=== PATIENT | male | born 1990 | race Caucasian/White ===

== ENCOUNTER 2018-03-25 17:54 | Emergency (ER) | payer MEDICAID ==
[~2018-03-25] VITALS: Ht 175.3 cm; Wt 111.1 kg
[~2018-03-25 17:54] MED LIST: ACETAMINOP-CODEI5 ML PO; AMITRIPTYLINE H10 M3; AMOXICILLIN 50500 M1 PO; ANTIVERT25 MG PO; APAP650 PO; BACLOFEN20 MG PO; BACTRIM DS TAB1 EACH PO; CRUTCH1 EACH MC; CYMBALTA30 MG PO; FLEXERIL; HYDROCODONE-AP1 EAC6 PO; IBUPROFEN 800800 M1 PO; KEFLEX500 MG PO; LIORESAL 10 MG10 MG PO; MEDROLDOSEPACK PO; MORPHINE SULFAT10 MG PO; MUSCLE RELAXER; NAPROSYN500 MG PO; NEURONTIN 400M400 M2; NORCO 5-325 TA1 EAC1 PO; NORCO 5-325 TA1 EACH PO; ONDANSETRON HCL4 M2 PO; PERCOCET 5-3251 EACH PO; PROTONIX 20 MG20 M1 PO; PROTONIX40 M1; PROZAC40 MG; TRAZODONE 150150 M1 PO; TRAZODONE HCL100 MG PO; UNKNOWN ANTIBIOTIC PO; VALIUM5 MG PO; VENTOLIN HFA 1818 GM INH; VICOPROFEN 2001 EACH; VISTARIL 25 MG25 M1 PO; ZOFRAN ODT4 MG PO
[2018-03-25 18:23] LABS: ABSOLUTE LYMPHOCYTES 1.1 thou/uL (0.8-5.3); ABSOLUTE MONOCYTES 0.5 thou/uL (0.0-1.2); ABSOLUTE NEUTROPHILS 6.4 thou/uL (1.6-8.1); BASOPHILS 0.5 %; EOSINOPHILS 0.3 %; HEMATOCRIT 43.9 % (42.0-52.0); HEMOGLOBIN 15.1 gm/dL (14.0-18.0); MCH 27.8 pg (26.0-34.0); MCHC 34.3 g/dL (28.0-37.0); MCV 81.1 fL (80.0-100.0); MONOCYTES 6.6 %; MPV 7.4 fl. (7.2-11.1); NUCLEATED RBCS 0 /100WBC; PLATELET COUNT* 292 thou/uL (150-400); POLYS 78.6 %; RBC 5.41 mil/uL (4.50-6.00); RDW-CV 12.9 % (10.5-14.5); WBC 8.1 thou/uL (4.0-11.0)
[2018-03-25 18:33] LABS: CALCIUM 9.3 mg/dL (8.5-10.1); POTASSIUM 3.4 mmol/L (3.5-5.1)
[2018-03-25 18:37] LABS: ALBUMIN 4.3 g/dL (3.4-5.0); TOTAL BILIRUBIN 0.5 mg/dL (<0.1-1.0); TOTAL PROTEIN 8.1 g/dL (6.4-8.2)
[2018-03-25] MEDS ORDERED: ZOFRAN ODT4 MG PO (20:14)
[2018-03-25 20:29] VITALS: BP 137/77
== END 2018-03-25 20:31 | disposition home or self-care (01) ==
LOC: M.ERS 17:54
PROVIDERS: Nurse Practitioner Family
DX: A08.39 Other viral enteritis (principal); R11.2 Nausea with vomiting, unspecified; M41.9 Scoliosis, unspecified; M79.7 Fibromyalgia; Z88.1 Allergy status to other antibiotic agents; Z88.6 Allergy status to analgesic agent

== ENCOUNTER 2018-04-29 17:53 | Inpatient (IN) | payer MEDICAID ==
[~2018-04-29] VITALS: Ht 175.3 cm; Wt 110.7 kg
[~2018-04-29 17:53] MED LIST changes: -AMITRIPTYLINE H10 M3; +AMITRIPTYLINE H10 M3 PO; -NEURONTIN 400M400 M2; +NEURONTIN 400M400 M2 PO; -PROZAC40 MG; +PROZAC40 MG PO
[2018-04-29 18:07] VITALS: BP 101/80
[2018-04-29 18:35] LABS: HEMATOCRIT 42.4 % (42.0-52.0); HEMOGLOBIN 14.4 gm/dL (14.0-18.0); MCH 27.9 pg (26.0-34.0); MCHC 34.1 g/dL (28.0-37.0); MCV 81.9 fL (80.0-100.0); MPV 8.7 fl. (7.2-11.1); NUCLEATED RBCS 0 /100WBC; PLATELET COUNT* 208 thou/uL (150-400); RBC 5.17 mil/uL (4.50-6.00); RDW-CV 13.5 % (10.5-14.5); WBC 7.7 thou/uL (4.0-11.0)
[2018-04-29 18:43] LABS: CALCIUM 8.5 mg/dL (8.5-10.1); CREATININE 1.1 mg/dL (0.6-1.3); POTASSIUM 3.7 mmol/L (3.5-5.1)
[2018-04-29 18:48] LABS: ALBUMIN 3.2 g/dL (3.4-5.0); TOTAL BILIRUBIN 0.6 mg/dL (<0.1-1.0); TOTAL PROTEIN 7.7 g/dL (6.4-8.2)
[2018-04-29 19:06] LABS: INFLUENZA B ANTIGEN None Detected (None Detect)
[2018-04-29 19:14] LABS: ABSOLUTE LYMPHOCYTES 0.5 thou/uL (0.8-5.3); ABSOLUTE MONOCYTES 0.3 thou/uL (0.0-1.2); ABSOLUTE NEUTROPHILS 6.9 thou/uL (1.6-8.1); ATYPICAL LYMPHS 2 %; PLATELET ESTIMATE ADEQUATE
[2018-04-29 20:04] VITALS: BP 124/67
[2018-04-29 20:44] VITALS: BP 134/76
[2018-04-29 22:14] LABS: URINE BILIRUBIN NEGATIVE (Negative); URINE BLOOD 3+ (Negative); URINE CLARITY CLEAR; URINE COLOR YELLOW; URINE GLUCOSE-RANDOM NEGATIVE (Negative); URINE KETONES 2+ (Negative); URINE LEUKOCYTES-REFLEX NEGATIVE (Negative); URINE NITRITE-REFLEX NEGATIVE (Negative); URINE PROTEIN 3+ (Negative)
[2018-04-29 22:22] LABS: BACTERIA-REFLEX None Seen /HPF (None Seen); CASTS None Seen /LPF (None Seen); CRYSTALS None Seen /LPF (None Seen); SQUAMOUS 4-10 Moderate /LPF (0-3); URINE RBC None Seen /HPF (0-2); URINE WBC-REFLEX None Seen /HPF (0-5)
[2018-04-30] VITALS: BP 119/67
[2018-04-30 00:23] LABS: BE -0.4 mmol/L (-2 to +3); HCO3 22.2 mmol/L (22.0-26.0); pH 7.473 (7.340-7.450)
[2018-04-30 04:00] VITALS: BP 113/55
--- NOTE | 2018-04-30 04:24 | NUR ---
ASSUMED CARE OF PT AT 2010 FROM THE ER. PT IS ALERT AND ORIENTED. NO COMPLAINTS OF PAIN. BEDREST. PT SCORED POSITIVE ON SEPSIS. PT RECIEVED FLUID BOLUS AND ANTIBIOTICS. PT IS ALSO REQUIRING BIPAP TO KEEP SPO2 ABOVE 90%. PT IS SLEEPING COMFORTABLY IN BED. RESPIRATIONS ARE EVEN AND NONLABORED. WILL CONTINUE TO MONITOR PT.
[2018-04-30 05:14] LABS: HEMATOCRIT 37.9 % (42.0-52.0); HEMOGLOBIN 12.6 gm/dL (14.0-18.0); MCH 27.7 pg (26.0-34.0); MCHC 33.2 g/dL (28.0-37.0); MCV 83.2 fL (80.0-100.0); MPV 8.6 fl. (7.2-11.1); RBC 4.55 mil/uL (4.50-6.00); RDW-CV 13.7 % (10.5-14.5); WBC 10.9 thou/uL (4.0-11.0)
[2018-04-30 05:28] LABS: CALCIUM 7.5 mg/dL (8.5-10.1); CREATININE 0.9 mg/dL (0.6-1.3); MAGNESIUM 2.2 mg/dL (1.8-2.4); POTASSIUM 3.8 mmol/L (3.5-5.1)
[2018-04-30 08:14] VITALS: BP 118/61
[2018-04-30 08:26] LABS: BE -1.1 mmol/L (-2 to +3); HCO3 22.4 mmol/L (22.0-26.0); PCO2 33.7 mmHg (35.0-45.0); PO2 73.9 mmHg (75.0-100.0)
[2018-04-30 08:34] LABS: PO2 51.7 mmHg (75.0-100.0)
--- NOTE | 2018-04-30 11:52 | EKG ---
[place] [address] ELECTROCARDIOGRAM REPORT Name: ALVARADOLIO Room: [address] ADM IN M.R.#: [id number] Admission: 04/29/18 Attend Phys: Sandra Sanders MD Discharge: Date of : 89 Report #: [id number] THIS REPORT FOR: //name// [facility] ED Test Date: 2018-04-29 Test Time: 18:27:09 Pat Name: LIO ALVARADO Department: Room: [address] Gender: M Data Analysis Intern: Lavelle IRVING : 1990 Requested By: Deena Barrientos Order Number: [id number] Lorraine MD: Gal Perez Measurements Intervals [place] Rate: 128 P: 36 MD: 139 QRS: 16 QRSD: 94 T: -6 QT: 330 QTc: 482 Interpretive Statements Sinus tachycardia artifact noted Borderline T abnormalities, diffuse leads Borderline prolonged QT interval Compared to ECG 12/04/2016 22:18:58 Sinus rhythm no longer present T-wave abnormality still present Electronically Signed On 04-30-2018 11:52:00 TICKET DISPENSER CHANGER by Gal Perez [email or web address] <ELECTRONICALLY SIGNED> By: Gal Perez MD, [facility] 04/30/18 1152 1827 1827 Gal Perez MD, [facility] /EPI
[2018-04-30 12:02] VITALS: BP 128/69
[2018-04-30 16:28] VITALS: BP 115/70
--- NOTE | 2018-04-30 18:00 | NUR ---
PT PROGRESSING TOWARDS GOALS THIS SHIFT. TOLERATING TIME OFF BIPAP AT 15 L/HF NC DURING MEALS AND WHILE AWAKE TODAY. BIPAP PLACED DURING TIMES OF SLEEP. PT MADE MED SURG STATUS THIS SHIFT. CONTINUE ON ISOLATION FOR FLU PRECAUTIONS. NO OTHER CONCERNS AT THIS TIME. CLWR. WCTM.
[2018-04-30 20:00] VITALS: BP 111/56
[2018-05-01] VITALS: BP 104/55
[2018-05-01 02:05] LABS: GLYCOHEMOGLOBIN (HGB A1C) 5.4 % (4.8-5.6)
--- NOTE | 2018-05-01 02:23 | NUR ---
ASSUMED PT CARE AT 1930. ASSESSMENT COMPLETED CHARTED. ABLE TO MAKE NEEDS KNOWN. MOTHER AT BEDSIDE. NO C/O PAIN, DISCOMFORT, OR SOA. UP WITH STANDBY. PT RESTING IN BED AT THIS TIME ON BIPAP. WILL CONTINUE TO MONITOR.
[2018-05-01 05:33] LABS: ABSOLUTE LYMPHOCYTES 0.7 thou/uL (0.8-5.3); ABSOLUTE MONOCYTES 0.2 thou/uL (0.0-1.2); ABSOLUTE NEUTROPHILS 7.9 thou/uL (1.6-8.1); BASOPHILS 0.1 %; HEMATOCRIT 34.9 % (42.0-52.0); HEMOGLOBIN 12.1 gm/dL (14.0-18.0); LYMPHOCYTES 8.3 %; MCH 28.8 pg (26.0-34.0); MCHC 34.7 g/dL (28.0-37.0); MCV 82.9 fL (80.0-100.0); MONOCYTES 2.6 %; MPV 8.8 fl. (7.2-11.1); NUCLEATED RBCS 0 /100WBC; PLATELET COUNT* 187 thou/uL (150-400); RBC 4.22 mil/uL (4.50-6.00); WBC 8.8 thou/uL (4.0-11.0)
[2018-05-01 06:33] LABS: ALBUMIN 2.1 g/dL (3.4-5.0); CALCIUM 7.3 mg/dL (8.5-10.1); CREATININE 0.5 mg/dL (0.6-1.3); MAGNESIUM 2.2 mg/dL (1.8-2.4); POTASSIUM 4.1 mmol/L (3.5-5.1); TOTAL BILIRUBIN 0.3 mg/dL (<0.1-1.0); TOTAL PROTEIN 5.2 g/dL (6.4-8.2)
[2018-05-01 08:45] VITALS: BP 104/55
--- NOTE | 2018-05-01 08:45 | NUR ---
ASSUMED PT. CARE AND RECEIVED REPORT AT 0730. PT A/OX4 WITH QUIET/FLAT AFFECT, VSS, PT. MED/SURG STATUS. UPON ENTERING ROOM PT HAD REMOVED HFNC STATING THAT THERE WAS WATER IN IT. RT NOTIFIED AND ASSESSED, OXYGEN REPLACED AT 15LHFNC. PT. WAS 87% ON RA. PT. C/O PAIN IN BACK (CHRONIC) 5/10, SORE THROAT, AND CLOGGED LEFT EAR. FULL ASSESSMENT COMPLETED, REFER TO CHARTING. PT. MOTHER AT BEDSIDE. STATES THAT PT. HOME MEDS ARE NOT REORDERED HE TAKES THEM, ALSO THAT HE TAKES 20MG OF METHADONE AND THAT HAS NOT BEEN GIVEN. METHADONE IS NOT ON HOME MED LIST, PT. MOTHER STATES SHE TOLD THE RN IN ER. HOME MED LIST UPDATED AND PT. REQUEST FOR THROAT SPRAY AND CHANGE IN HOME MEDS ORDERED SENT TO DR. ULRICH VIA [employer]. CALL LIGHT IN REACH, WILL CONTINUE WITH PLAN OF CARE.
[2018-05-01] MEDS ORDERED: METHADOSE10 MG PO (08:46)
--- NOTE | 2018-05-01 12:32 | NUR ---
PT. TITRATED O2 BY DR. ULRICH WHEN IN ROOM TO 8L HFNC. UPON RECHECK PT. OXYGEN SAT. 88%. OX INCREASE BACK UP TO 10L HFNC @ 92%.
[2018-05-01 12:47] VITALS: BP 114/58
--- NOTE | 2018-05-01 16:59 | NUR ---
PT. MOTHER IN ROOM MOST OF THE DAY. STATES SHE IS CURRENTLY NOT FEELING WELL NOW AND RUNNING TEMP, THINKS SHE MIGHT HAVE FLU NOW. SHE IS LEAVING TO RETURN HOME. PT. EDUCATED ON FALL PRECAUTIONS AND ENSURE BED ALARM IS SET.
--- NOTE | 2018-05-01 18:54 | NUR ---
NO CHANGE IN PT. STATUS REMAINDER OF SHIFT. PT. IS NOT STEADY ON FEET, AND HYPERVENTILATES WITH ANY MOVEMENT/ACTIVITY. PT. TAKEN TO SHOWER ROOM VIA WHEELCHAIR, ABLE TO CLEAN SELF AND BRUSH TEETH WITH SUPERVISION. REMAINS ON 10L HFNC. PT DID WEAR BIPAP ON/OFF WHILE NAPPING TODAY. INCONT. OF MINOR STOOL AND THEN HAD LARGE BM, BROWN/FORMED. PT. USING CALL LIGHT APPROPRIATELY AND ASKING FOR ASSISTANCE. HOURLY ROUNDING COMPLETED THROUGH OUT THE DAY FOR PT. SAFETY. FALL PRECAUTIONS REMAIN IN PLACE.
[2018-05-01 20:00] VITALS: BP 126/73
[2018-05-02 00:11] VITALS: BP 140/77
--- NOTE | 2018-05-02 04:13 | NUR ---
ASSUMED PT CARE AT 1930. ASSESSMENT COMPLETED CHARTED. ABLE TO MAKE NEEDS KNOWN. PT RESTING IN BED AT THIS TIME. NO C/O PAIN OR DISCOMFORT. PT STATES HE IS MISSING HIS MOTHER BEING THERE. ON 10L HFNC AND BIPAP AT NIGHT. WILL CONTINUE TO MONITOR.
[2018-05-02 05:26] LABS: HEMATOCRIT 36.1 % (42.0-52.0); HEMOGLOBIN 12.2 gm/dL (14.0-18.0); MCH 27.9 pg (26.0-34.0); MCHC 33.7 g/dL (28.0-37.0); MCV 82.8 fL (80.0-100.0); MPV 8.6 fl. (7.2-11.1); RBC 4.37 mil/uL (4.50-6.00); WBC 5.6 thou/uL (4.0-11.0)
[2018-05-02 05:37] LABS: CALCIUM 8.2 mg/dL (8.5-10.1); CREATININE 0.6 mg/dL (0.6-1.3); POTASSIUM 3.5 mmol/L (3.5-5.1)
--- NOTE | 2018-05-02 08:50 | NUR ---
ASSUMED PT. CARE AND RECEIVED REPORT AT 0730. PT A/OX4, VSS, PT. MED/SURG STATUS. PT. ON 10L HFNC. FULL ASSESSMENT COMPLETED, REFER TO CHARTING. PT ENCOURAGED TO INCREASE ACTIVITY TOLERATED TODAY, UP TO RECLINER FOR BREAKFAST. CONTINUES TO HYPERVENTILATE WITH ANY ACTIVITY. C/O LEFT EAR BEING CLOGGED AND SORE THROAT REMAINS. CALL LIGHT IN REACH, WILL CONTINUE WITH PLAN OF CAER.
[2018-05-02 09:00] VITALS: BP 120/72
--- NOTE | 2018-05-02 13:38 | NUR ---
DISCUSSED WITH NURSING, PT RESTING. 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 MO HAD RECENTLY GONE HOME. WILL TRY TO SEE LATER
[2018-05-02 16:58] VITALS: BP 116/66
--- NOTE | 2018-05-02 19:37 | NUR ---
PT. STABLE THROUGH OUT SHIFT. UP IN RECLINER MOST OF THE DAY, TOLERATED WELL. CONTINUES TO BE ON 10L HFNC/BIPAP AT HS. WORKED WITH THERAPY TODAY, REMAINS UNSTEADY WHEN UP. RESP. VIRAL PANEL SENT PER ORDERS. HOURLY ROUNDING COMPLETED THROUGH OUT THE DAY FOR PT. SAFETY.
[2018-05-02 20:33] VITALS: BP 118/64
[2018-05-02 22:15] VITALS: BP 125/74
--- NOTE | 2018-05-03 01:45 | NUR ---
RECIEVED REPORT FROM NEY CIFUENTES ON . PT TRANSFERED TO ROOM 313 AT 2215. PT DOWN GRADED TO MEDICAL STATUS. PT ON O2 AT 10 LITERS HIGH FLOW WITH SAT 94-97%. PT PLACED ON BIPAP PER RESPIRATORY THERAPY AT 2330. AT THIS TIME PT PULLING OFF MASK CONTINUALLY AND COMPLAINING MASK DOES NOT FIT. RESPIRATORY THERAPIST SPOKE WITH PT AND MADE ADJUSTMENTS. CALL LIGHT IN REACH, PT USES APPROPRIATELY AND FREQUENTLY.
[2018-05-03 04:09] LABS: HEMATOCRIT 36.3 % (42.0-52.0); HEMOGLOBIN 12.5 gm/dL (14.0-18.0); MCH 28.7 pg (26.0-34.0); MCHC 34.5 g/dL (28.0-37.0); MCV 83.1 fL (80.0-100.0); MPV 8.3 fl. (7.2-11.1); RBC 4.36 mil/uL (4.50-6.00); RDW-CV 13.7 % (10.5-14.5)
[2018-05-03 04:22] LABS: CALCIUM 7.9 mg/dL (8.5-10.1); CREATININE 0.7 mg/dL (0.6-1.3); POTASSIUM 3.6 mmol/L (3.5-5.1)
--- NOTE | 2018-05-03 06:27 | NUR ---
PT TAKING OFF BIPAP FREQUENTLY DURING NIGHT. BIPAP FINALLY REMOVED FOR NIGHT AT 0200 PER PT'S DEMAND. PT THEN ON 10 LITERS HIGH FLOW NASAL CANULA FOR DURATION OF SHIFT. PT FINALLY SLEEPING AT 0300. VITAL SIGNS WITHIN NORMAL LIMITS, WILL CONTINUE TO MONITOR.
[2018-05-03 07:35] VITALS: BP 113/74
[2018-05-03 16:06] VITALS: BP 124/74
--- NOTE | 2018-05-03 19:38 | NUR ---
PATIENT A&OX4, DEVELOPMENTALY DELAYED, CALLS OUT APPROPRIATELY AND ANSWERES QUESTIONS APPROPRIATELY. 10L HIGHFLOW NASAL CANULA, BIPAP AT HS, DOESN'T ALWAYS TOLERATE. C/O BACK PAIN, RELIEF WITH JOEL PAIN MEDICATIONS. UP WITH ASSSITX1 WITH WALKER AND GIATBELT TO BEDSIDE CAMODE. UA AND MRSA SWAB SENT TO LAB, RESULTS PENDING. NO OTHER CONCERNS AT THIS TIME, APPROPRIATE AND COOPORATIVE WITH CARE. WILL CONTINUE TO MONITOR.
[2018-05-03 19:50] VITALS: BP 110/73
--- NOTE | 2018-05-04 01:54 | NUR ---
RECIEVED REPORT AND ASSUMED CARE AT 1900. VITAL SIGNS STABLE. PT UP WITH ASSIST X 1, GAITBELT AND WALKER. PT DENIED ANY PAIN AT THIS TIME. ASSESSMENT COMPLETED, DISCUSSED PLAN OF CARE AND PT UNDERSTANDS. BED LOCKED AND CALL LIGHT WITHIN REACH. FALL PRECAUTIONS IN PLACE. HOURLY ROUNDING DONE AND ALL NEEDS MET. NURSING WILL CONTINUE TO MONITOR.
[2018-05-04 03:41] LABS: HEMATOCRIT 36.8 % (42.0-52.0); HEMOGLOBIN 12.5 gm/dL (14.0-18.0); MCH 28.1 pg (26.0-34.0); MCV 82.8 fL (80.0-100.0); MPV 8.2 fl. (7.2-11.1); RBC 4.44 mil/uL (4.50-6.00); RDW-CV 13.6 % (10.5-14.5); WBC 6.9 thou/uL (4.0-11.0)
[2018-05-04 04:03] LABS: CALCIUM 8.2 mg/dL (8.5-10.1); CREATININE 0.7 mg/dL (0.6-1.3); MAGNESIUM 2.1 mg/dL (1.8-2.4); POTASSIUM 4.4 mmol/L (3.5-5.1)
[2018-05-04 07:55] VITALS: BP 121/78
[2018-05-04 17:12] VITALS: BP 107/68
--- NOTE | 2018-05-04 18:45 | NUR ---
PATIENT A&OX4, DEVELOPMENTALY DELAYED. ON 5L HIGH FLOW NC. IV RIGHT AC SALINE LOCK. UP STAND BY ASSISTX1 WITH WALKER AND O2. NO C/O PAIN/N/V. POOR APPETITE. NO OTHER CONCERNS AT THIS TIME. APPROPRIATE AND COOPORATIVE WITH CARE. WILL CONTINUE TO MONITOR.
[2018-05-04 19:56] VITALS: BP 115/66
[2018-05-05 04:15] LABS: HEMATOCRIT 36.6 % (42.0-52.0); MCH 26.9 pg (26.0-34.0); MCHC 32.8 g/dL (28.0-37.0); MCV 82.1 fL (80.0-100.0); RBC 4.46 mil/uL (4.50-6.00); RDW-CV 13.1 % (10.5-14.5); WBC 12.4 thou/uL (4.0-11.0)
[2018-05-05 04:38] LABS: CALCIUM 8.7 mg/dL (8.5-10.1); CREATININE 0.7 mg/dL (0.6-1.3); POTASSIUM 3.6 mmol/L (3.5-5.1)
--- NOTE | 2018-05-05 06:51 | NUR ---
pt continues progressing towards goals, no s/s acute distress noted during this shift, continues on IV ABX with no adverse reactions, pt up ad russel, resting quietly in bed at this time watching television no concerns expressed, call light within reach
[2018-05-05 07:41] VITALS: BP 118/65
[2018-05-05 12:22] VITALS: BP 116/70; BP 121/80
[2018-05-05 12:23] VITALS: BP 111/73
--- NOTE | 2018-05-05 16:54 | NUR ---
ASSESSMENT COMPLETE. PT IS ALERT AND ORIENTED X4. PT REPORTS CHRONIC BACK PAIN. DENIES NEED FOR PRN MEDICATION. PT ON 5L PER NC. ABX CHANGED TO PO LEVAQUIN. PT/OT WORKED WITH PT TODAY, AMBULATED IN [place]ARKER. PT IS FLU +, ISOLATION IN PLACE. PT IS UP ONE ASSIST WITH WALKER AND GAIT BELT. PT USES URINAL. VSS, AFEBRILE. PT DENIES N/V TOLERATING DIET. ORTHOSTATIC BP COMPLETED. PT WILL HAVE OVERNIGHT PULSE OX. PT HAS NO OTHER CONCERNS AT THIS TIME. SEE ASSESSMENT AND VITALS FOR OTHER DETAILS. CALL LIGHT WITHIN REACH, WILL CONTINUE PLAN OF CARE
[2018-05-05 20:00] VITALS: BP 120/69
--- NOTE | 2018-05-06 06:41 | NUR ---
ASSUMED PATIENT CARE AT 1900. PATIENT ALERT AND ORIENTED TIMES FOUR. CALM AND COOPERATIVE THROUGH SHIFT. NO COMPLAINTS OF PAIN OR DISCOMFORT NOTED. CONTINUOUS PULSE OX COMPLETED THROUGH THE NIGHT. DID NOT ALARM AND DID NOT REQUIRE 02.
[2018-05-06 07:37] LABS: ADENOVIRUS Negative (Negative); INFLUENZA A Negative (Negative); INFLUENZA B Negative (Negative); METAPNEUMOVIRUS Negative (Negative); PARAINFLUENZA 1 Negative (Negative); PARAINFLUENZA 2 Negative (Negative); PARAINFLUENZA 3 Negative (Negative); RHINOVIRUS Negative (Negative); RSV A Negative (Negative); RSV B Negative (Negative)
[2018-05-06 07:46] VITALS: BP 115/71
[2018-05-06] MEDS ORDERED: LEVAQUIN 750 M750 MG PO (08:52)
[2018-05-06] MEDS ORDERED: VENTOLIN HFA 1818 GM INH (08:52)
[2018-05-06] MEDS ORDERED: ACIDOPHILUS1 EAC4 PO (08:52)
[2018-05-06] MEDS ORDERED: PREDNISONE 10 M10 M1 PO (08:52)
[2018-05-06 09:36] VITALS: BP 120/69
[2018-05-06 14:15] VITALS: BP 120/69
--- NOTE | 2018-05-06 14:16 | NUR ---
Pt to dc home today in need of oxygen. SW received prior authorization from Medicaid. SW faxed referral and orders to [facility] BEATRIS spoke with intake at [facility] who accepted referral. Oxygen to be delivered to pt prior to dc.
--- NOTE | 2018-05-06 15:42 | NUR ---
PT DISCHARGED TODAY. DISCHARGE INSTRUCTIONS GIVEN AND PERSCRIPTIONS GIVEN. PT VERBALIZES UNDERSTANDING. IV DC'D. PT DENIES PAIN AND N/V. HOME O2 SET UP WITH PT.
[2018-05-06 15:44] VITALS: BP 120/69
== END 2018-05-06 15:40 | disposition home or self-care (01) | DRG 193 ==
LOC: M.ERS 17:53 → M.TBA-ER 18:50 → M.2W 18:50 → M.3W 05-02 22:35
PROVIDERS: Emergency Medicine; Internal Medicine; Physician Assistant; ADMIT Internal Medicine
PROC: 5A09357 Assistance with Respiratory Ventilation, Less than 24 Consecutive Hours, Continuous Positive Airway Pressure (ICD-10-PCS; principal; 2018-05-02)
DX: J10.08 Influenza due to other identified influenza virus with other specified pneumonia (principal); J96.01 Acute respiratory failure with hypoxia; R65.10 Systemic inflammatory response syndrome (SIRS) of non-infectious origin without acute organ dysfunction; F11.20 Opioid dependence, uncomplicated; J12.9 Viral pneumonia, unspecified; J15.9 Unspecified bacterial pneumonia; F17.220 Nicotine dependence, chewing tobacco, uncomplicated; G80.9 Cerebral palsy, unspecified; M79.7 Fibromyalgia; G47.33 Obstructive sleep apnea (adult) (pediatric); Z28.21 Immunization not carried out because of patient refusal; Z88.8 Allergy status to other drugs, medicaments and biological substances; Z79.899 Other long term (current) drug therapy